=== PATIENT | male | born 1990 | race Caucasian/White ===

== ENCOUNTER 2018-08-07 04:18 | Emergency (ER) | payer MEDICAID ==
[2018-08-07] MEDS ORDERED: PENICILLIN VK 250MG PREPACK#6 BTL TAKEHOME ONE (04:25)
[2018-08-07] MEDS ORDERED: PENICILLIN VK 500 MG TAB PO ONE (04:25)
[2018-08-07 04:27] VITALS: BP 110/75
--- NOTE | 2018-08-07 04:33 | EDPHY ---
H & P Stated Complaint: tooth pain Time Seen by Provider: 08/07/18 04:22 HPI/ROS: HPI The patient presents with tooth pain which has been present for the last 2 years though has been worse over the last 1 week. The pain is in his right posterior molar and is achy in nature. He has been taking ibuprofen without any relief of his symptoms. He has not seen a dentist for this since he moved to [place] several weeks ago. He denies any fevers or chills, difficulty swallowing, sore throat. He is brought in by ambulance from [place] where he is camping. He was given fentanyl 100 mcg prior to our assessment.. REVIEW OF SYSTEMS 10 systems were reviewed and negative with the exception of the elements mentioned in the history of present illness. PMHx: Healthy Soc Hx: Transient, relocated from [place], living in [place] in his van PHYSICAL General Appearance: Alert, no distress Eyes: Pupils equal and round no pallor or injection ENT, Mouth: Tooth 32 with dental caries with erythema along the gum line without any area of fluctuance, this is tender to palpation Respiratory: Breathing comfortably Neurological: A&O, moves all extremities Skin: Warm and dry, no rashes Musculoskeletal: Neck is supple non tender Extremities: symmetrical, full range of motion Psychiatric: Patient is oriented X 3, there is no agitation Source: Patient, EMS Exam Limitations: No limitations Constitutional: Initial Vital Signs Temperature (C) 36.7 C 08/07/18 04:25 Heart Rate 70 08/07/18 04:25 Respiratory Rate 16 08/07/18 04:25 Blood Pressure 110/75 08/07/18 04:25 O2 Sat (%) 97 08/07/18 04:25 O2 Delivery Mode Room Air Allergies/Adverse Reactions: No Known Allergies Allergy (Unverified 08/07/18 04:23) Home Medications: Medication Instructions Recorded Penicillin V Potassium [Penicillin 500 mg PO BID #14 tab 08/07/18 VK] Medical Decision Making Differential Diagnosis: 28-year-old male with small dental abscess secondary to dental caries and poor dentition. No trismus, no signs of deep space neck infection, no drainable abscess at this point. Patient would benefit from extraction. He does not have a phone, however I have given him written information on [facility] so he can go for a visit. I will treat him with penicillin and Tylenol for his pain. - Data Points Medications Given: Discontinued Medications Acetaminophen (Tylenol) 1,000 mg PO EDNOW ONE Stop: 08/07/18 04:44 Last Admin: 08/07/18 04:44 Dose: 1,000 mg Penicillin V Potassium (Pen Vk) 500 mg PO EDNOW ONE PRN Reason: Protocol Stop: 08/07/18 04:26 Last Admin: 08/07/18 04:37 Dose: 500 mg Penicillin V Potassium (Pen Vk 250 Mg Prepack#6) 1 btl TAKEHOME EDNOW ONE PRN Reason: Protocol Stop: 08/07/18 04:26 Last Admin: 08/07/18 04:38 Dose: 1 btl Departure - Departure Disposition: Home, Routine, Self-Care Clinical Impression: Toothache Condition: Good Instructions: Toothache (ED) Additional Instructions: [facility] today. They should be able to help you with your tooth. Referrals: [facility] [Outside] - As per Instructions Prescriptions: Penicillin V Potassium [Penicillin VK] 500 mg PO BID #14 tab
[2018-08-07] MEDS ORDERED: ACETAMINOPHEN 500 MG TAB PO ONE (04:43)
[2018-08-07] MEDS ORDERED: ACETAMINOPHEN 500 MG TAB ONE (04:43)
== END 2018-08-07 04:48 | disposition home or self-care (01) ==
LOC: EDSEX
DX: K08.89 Other specified disorders of teeth and supporting structures (principal)